=== PATIENT | female | born 1975 | race African-American/Black ===

== ENCOUNTER 2016-09-25 05:16 | Emergency (ER) | payer MEDICAID ==
[~2016-09-25] VITALS: Ht 157.5 cm; Wt 64.9 kg
[2016-09-25 05:58] VITALS: BP 148/98
[2016-09-25] MEDS ORDERED: methylPREDNISolone SOD SUCC 125 MG/2 ML VL IM ONE (07:45)
[2016-09-25] MEDS ORDERED: PENICILLIN G BENZ 1200000 UNITS/2 ML SYRG IM ONE (07:45)
[2016-09-25] MEDS ORDERED: HYDROcodone-ACET 5/325MG TAB PO ONE (08:00)
[2016-09-25] MEDS ORDERED: diphenhdrAMINE HCL 50 MG/1 ML VL IM ONE (08:00)
== END 2016-09-25 08:34 | disposition home or self-care (01) ==
LOC: ER 05:16
DX: R21 Rash and other nonspecific skin eruption (principal); I10 Essential (primary) hypertension; Z88.1 Allergy status to other antibiotic agents
CPT/HCPCS: 96372; 99284; J0561; J1200; J2930

== ENCOUNTER → 2016-09-25 | Emergency (ER) | payer MEDICAID | END | disposition left against medical advice (07) | LOC: ER 02:22 | DX: T78.40XA Allergy, unspecified, initial encounter (principal); Z53.21 Procedure and treatment not carried out due to patient leaving prior to being seen by health care provider ==

== ENCOUNTER 2018-01-22 11:12 | Emergency (ER) | payer MEDICAID ==
[~2018-01-22] VITALS: Ht 160 cm; Wt 108.9 kg
[2018-01-22 11:20] VITALS: BP 134/83
[2018-01-22] MEDS ORDERED: METHOCARBAMOL 500 MG TAB PO ONE (12:15)
[2018-01-22] MEDS ORDERED: KETOROLAC TROMETH 60MG/2ML VIAL IM ONE (12:15)
[2018-01-22 12:45] LABS: Urine Bacteria FEW /hpf (None Seen); Urine Blood Negative /uL (Negative); Urine Mucus FEW (None Seen); Urine Specific Gravity 1.024 (1.001-1.035); Urine WBC 15 /hpf (0 - 5)
== END 2018-01-22 13:14 | disposition home or self-care (01) ==
LOC: ER 11:12
DX: M54.5 Low back pain (principal); G89.29 Other chronic pain; N39.0 Urinary tract infection, site not specified
CPT/HCPCS: 72100; 81001; 81002; 96372; 99285; J1885

== ENCOUNTER 2019-10-11 10:02 | Emergency (ER) | payer MEDICAID ==
[~2019-10-11] VITALS: Ht 160 cm; Wt 104.3 kg
[2019-10-11 10:19] VITALS: BP 153/76
[2019-10-11] MEDS ORDERED: HYDROmorphone HCL 2 MG/ML VL IM ONE (11:00)
[2019-10-11] MEDS ORDERED: PROMETHAZINE HCL 25 MG/ML 1ML IM ONE (11:00)
== END 2019-10-11 11:47 | disposition home or self-care (01) ==
LOC: ER 10:02
DX: M51.16 Intervertebral disc disorders with radiculopathy, lumbar region (principal); F17.210 Nicotine dependence, cigarettes, uncomplicated; I10 Essential (primary) hypertension; Z98.51 Tubal ligation status; Z88.1 Allergy status to other antibiotic agents; Z88.2 Allergy status to sulfonamides
CPT/HCPCS: 96372; 99284; J1170; J2550

== ENCOUNTER 2020-10-11 06:16 | Inpatient (IN) | payer MEDICAID ==
[~2020-10-11] VITALS: Ht 157.5 cm; Wt 117.0 kg
[2020-10-11] MEDS ORDERED: ONDANSETRON HCL 4 MG/2 ML VIAL IV ONE (07:00)
[2020-10-11] MEDS ORDERED: MORPHINE SULF INJ 2 MG/ML SYRINGE 1ML IV ONE (07:15)
[2020-10-11] MEDS ORDERED: SODIUM CHLORIDE 0.9% 500 ML IVB ONE (07:30)
[2020-10-11] MEDS ORDERED: SODIUM CHLORIDE 0.9% 1,000 ML IV ONE (07:30)
[2020-10-11] MEDS ORDERED: DONNATAL 5ml ORAL Elix (BELLADONNA ALK-PHENOBARB) PO ONE (07:30)
[2020-10-11] MEDS ORDERED: ALUM & MAG HYDROX-SIMETH LIQ(MAALOX) 30 ML PO ONE (07:30)
[2020-10-11] MEDS ORDERED: FAMOTIDINE 20 MG TAB PO ONE (07:30)
[2020-10-11 07:45] LABS: Basophils # (auto) 0.1 10 ^3/uL (0-0.2); Basophils % (auto) 0.7 % (0.0-2.0); Eosinophils # (auto) 0.1 10 ^3/uL (0-0.8); Eosinophils % (auto) 0.7 % (0.0-7.0); Hematocrit 39.1 % (36.0-46.0); Hemoglobin 13.2 g/dL (12.2-16.2); Lymphocytes # (auto) 2.7 10 ^3/uL (0.4-5.4); Lymphocytes % (auto) 22.9 % (10.0-50.0); Mean Corpuscular Hgb Conc. 33.8 g/dL (32.0-36.0); Mean Corpuscular Volume 88.9 fL (80.0-100.0); Monocytes # (auto) 0.5 10 ^3/uL (0-1.3); Monocytes % (auto) 4.3 % (0.0-12.0); Neutrophils # (auto) 8.3 10 ^3/uL (1.6-8.6); Neutrophils % (auto) 71.4 % (37.0-80.0); White Blood Cell 11.7 10^3/uL (4.4-10.8)
[2020-10-11 07:54] LABS: Calcium 8.9 mg/dL (8.5-10.1); Magnesium 2.2 mg/dL (1.6-2.6); Potassium 3.5 mmol/L (3.5-5.1)
[2020-10-11 07:55] LABS: Urine Bacteria NONE SEEN /hpf (None Seen); Urine Blood Negative /uL (Negative); Urine Mucus FEW (None Seen); Urine Specific Gravity 1.016 (1.001-1.035); Urine WBC <1 /hpf (0 - 5)
[2020-10-11 08:00] LABS: BUN/Creatinine Ratio 10.4; Bilirubin, Total 0.2 mg/dL (0.2-1.0); Total Protein 8.3 g/dL (6.4-8.2)
[2020-10-11 09:12] LABS: Alcohol, Urine < 3.0 mg/dL (0-10); Amphetamine Screen, Urine NEGATIVE (NEGATIVE); Barbiturate Scree,Urine NEGATIVE (NEGATIVE); Benzodiazephine Screen, Urine POSITIVE (NEGATIVE); Cannabinoid Screen, Urine NEGATIVE (NEGATIVE); Cocaine Screen, Urine NEGATIVE (NEGATIVE); Opiate Scree,Urine NEGATIVE (NEGATIVE); Phencyclidine Screen, Urine NEGATIVE (NEGATIVE)
[2020-10-11] MEDS ORDERED: KETOROLAC TROMETH 30 MG/ML 1ML VIAL IV ONE ×2 (09:15)
[2020-10-11] MEDS ORDERED: METOCLOPRAMIDE HCL 5MG/ml INJ 2ml VIAL IV ONE ×2 (09:15)
[2020-10-11] MEDS ORDERED: cefTRIAXone 1GM/50ML D5W 50 ML IV ONE (12:15)
[2020-10-11] MEDS ORDERED: MORPHINE SULF INJ 2 MG/ML SYRINGE 1ML IV PRN (14:45)
[2020-10-11] MEDS ORDERED: NITROGLYCERIN 0.4 MG SL TAB SL PRN (14:45)
[2020-10-11] MEDS: D5W/SOD CHLO 0.9% 1,000 ML IV SCH ×2 (14:45→21:52)
[2020-10-11] MEDS ORDERED: hydrALAZINE HCL 20 MG/ML VL IV PRN (14:45)
[2020-10-11] MEDS ORDERED: ACETAMINOPHEN 325 MG TAB PO PRN (14:45)
[2020-10-11] MEDS: ONDANSETRON HCL 4 MG/2 ML VIAL IV PRN ×2 (15:17→21:49)
[2020-10-11] MEDS: KETOROLAC TROMETH 30 MG/ML 1ML VIAL IV PRN ×2 (15:17→21:48)
[2020-10-11] MEDS: PIPERACILLIN-TAZOB 3.375GM 100 ML IV SCH (21:52)
[2020-10-11] MEDS: ALPRAZolam 0.5 MG TAB PO SCH (21:52)
[2020-10-11 21:59] VITALS: BP 117/63
[2020-10-11 22:05] VITALS: BP 117/63
[2020-10-11] MEDS ORDERED: HYDR-4798 PO (23:09)
[2020-10-11] MEDS ORDERED: AMLO-489 PO (23:09)
[2020-10-11] MEDS ORDERED: MORP15TA PO (23:09)
[2020-10-11] MEDS ORDERED: METO-289 PO (23:09)
[2020-10-11] MEDS ORDERED: IBUP800T27 PO (23:09)
[2020-10-11] MEDS ORDERED: ALPR0.5T PO (23:09)
[2020-10-11] MEDS ORDERED: ONDA-155 PO (23:09)
[2020-10-11] MEDS ORDERED: CYCL10TA6 PO (23:09)
[2020-10-11] MEDS ORDERED: OMEP20TA PO (23:09)
[2020-10-12] MEDS: KETOROLAC TROMETH 30 MG/ML 1ML VIAL IV PRN ×3 (03:51→10:35)
[2020-10-12 05:13] VITALS: BP 102/54
[2020-10-12] MEDS: PIPERACILLIN-TAZOB 3.375GM 100 ML IV SCH ×2 (05:15→15:05)
[2020-10-12] MEDS: D5W/SOD CHLO 0.9% 1,000 ML IV SCH ×2 (06:45→15:06)
[2020-10-12 07:00] LABS: Basophils # (auto) 0.1 10 ^3/uL (0-0.2); Basophils % (auto) 0.7 % (0.0-2.0); Eosinophils # (auto) 0.1 10 ^3/uL (0-0.8); Eosinophils % (auto) 0.8 % (0.0-7.0); Hematocrit 35.7 % (36.0-46.0); Hemoglobin 12.2 g/dL (12.2-16.2); Lymphocytes # (auto) 2.1 10 ^3/uL (0.4-5.4); Lymphocytes % (auto) 19.3 % (10.0-50.0); Mean Corpuscular Volume 88.3 fL (80.0-100.0); Monocytes # (auto) 0.8 10 ^3/uL (0-1.3); Neutrophils % (auto) 72.2 % (37.0-80.0); Red Blood Cells 4.05 10^6/uL (4.0-5.20); Red Cell Distribution Width 14.1 % (11.8-14.3); White Blood Cell 11.1 10^3/uL (4.4-10.8)
[2020-10-12 07:15] LABS: Albumin 3.2 g/dL (3.4-5.0); Calcium 7.9 mg/dL (8.5-10.1); Potassium 3.2 mmol/L (3.5-5.1)
[2020-10-12 07:19] LABS: BUN/Creatinine Ratio 8.3; Bilirubin, Total 0.5 mg/dL (0.2-1.0)
[2020-10-12 09:00] VITALS: BP 101/60
[2020-10-12] MEDS: PANTOPRAZOLE 40 MG/10 ML VIAL INJ IV SCH (09:40)
[2020-10-12] MEDS: ONDANSETRON HCL 4 MG/2 ML VIAL IV PRN (10:36)
[2020-10-12] MEDS: HYDROcodone-ACET 10/325MG TAB PO PRN ×3 (11:06→19:50)
[2020-10-12 11:26] LABS: INR 1.1 (0.9-1.15); Partial Thromboplastin Time 30.5 sec (23.0-31.2)
[2020-10-12 13:00] VITALS: BP 131/74
[2020-10-12] MEDS: D5W/SOD CHL 0.45%/KCL 40MEQ 1,000 ML IV SCH (17:32)
[2020-10-12 22:09] VITALS: BP 102/52
[2020-10-12] MEDS: ALPRAZolam 0.5 MG TAB PO SCH (22:38)
[2020-10-13] MEDS: HYDROcodone-ACET 10/325MG TAB PO PRN ×3 (00:04→20:47)
[2020-10-13] MEDS: ONDANSETRON HCL 4 MG/2 ML VIAL IV PRN ×3 (00:34→23:22)
[2020-10-13] MEDS: PIPERACILLIN-TAZOB 3.375GM 100 ML IV SCH ×3 (01:49→17:57)
[2020-10-13] MEDS: D5W/SOD CHL 0.45%/KCL 40MEQ 1,000 ML IV SCH ×3 (03:15→23:15)
[2020-10-13 04:52] VITALS: BP 93/51
[2020-10-13 07:00] LABS: Basophils # (auto) 0.1 10 ^3/uL (0-0.2); Eosinophils # (auto) 0.1 10 ^3/uL (0-0.8); Eosinophils % (auto) 1.1 % (0.0-7.0); Hematocrit 34.4 % (36.0-46.0); Hemoglobin 11.7 g/dL (12.2-16.2); Lymphocytes # (auto) 2.2 10 ^3/uL (0.4-5.4); Lymphocytes % (auto) 22.7 % (10.0-50.0); Mean Corpuscular Hemoglobin 30.3 pg (28.0-32.0); Monocytes # (auto) 0.7 10 ^3/uL (0-1.3); Monocytes % (auto) 6.8 % (0.0-12.0); Neutrophils # (auto) 6.6 10 ^3/uL (1.6-8.6); Neutrophils % (auto) 68.4 % (37.0-80.0); Nucleated Red Blood Cells % 0.1 %; Red Blood Cells 3.86 10^6/uL (4.0-5.20); Red Cell Distribution Width 14.3 % (11.8-14.3); White Blood Cell 9.7 10^3/uL (4.4-10.8)
[2020-10-13 07:15] LABS: Albumin 3.1 g/dL (3.4-5.0); Calcium 7.9 mg/dL (8.5-10.1); Potassium 3.2 mmol/L (3.5-5.1)
[2020-10-13 07:19] LABS: BUN/Creatinine Ratio 4.8; Bilirubin, Total 0.7 mg/dL (0.2-1.0); Total Protein 6.9 g/dL (6.4-8.2)
[2020-10-13 07:30] LABS: INR 1.12 (0.9-1.15)
[2020-10-13 09:00] VITALS: BP 117/72
[2020-10-13] MEDS ORDERED: ceFAZolin 1GM/50ML 100 ML IV ONE (09:33)
[2020-10-13] MEDS ORDERED: BUPIVACAINE W/ EPINEPH 0.25% INJ 50ML MDV ONE (09:42)
[2020-10-13] MEDS ORDERED: LIDOCAINE 1% HCL (LOCAL ANESTH.) INJ 20ML MDV ONE (09:42)
[2020-10-13] MEDS ORDERED: fentaNYL CITRATE 100 MCG/2 ML VL ONE (10:01)
[2020-10-13] MEDS ORDERED: MIDAZOLAM HCL 1MG/1ML-2 ML VIAL ONE (10:01)
[2020-10-13] MEDS ORDERED: ROCURONIUM 10MG/ML 10ML VIAL IV ONE (10:01)
[2020-10-13] MEDS ORDERED: ONDANSETRON HCL 4 MG/2 ML VIAL ONE ×2 (10:58→11:46)
[2020-10-13] MEDS ORDERED: LIDOCAINE 2% (LOCAL ANESTH.) PF 5ml SDV ONE (10:58)
[2020-10-13] MEDS ORDERED: PROPOFOL 10 MG/ML 20 ML IV ONE (10:58)
[2020-10-13] MEDS ORDERED: GLYCOPYRROLATE 0.2 MG/ML 1ML VIAL ONE (11:31)
[2020-10-13] MEDS ORDERED: NEOSTIGMINE 1 MG/ML INJ (10mg/10ML VIAL) ONE (11:31)
[2020-10-13] MEDS ORDERED: HYDROmorphone HCL 2 MG/ML VL IV PRN ×2 (11:45→13:00)
[2020-10-13] MEDS: HYDROmorphone HCL 2 MG/ML VL IV PRN ×4 (11:45→22:34)
[2020-10-13] MEDS ORDERED: ONDANSETRON HCL 4 MG/2 ML VIAL IV PRN (11:45)
[2020-10-13] MEDS ORDERED: HYDROmorphone HCL 2 MG/ML VL ONE (11:46)
[2020-10-13] MEDS: PANTOPRAZOLE 40 MG/10 ML VIAL INJ IV SCH (13:10)
[2020-10-13 17:27] VITALS: BP 131/69
[2020-10-13] MEDS: ALPRAZolam 0.5 MG TAB PO SCH (20:47)
[2020-10-13 22:00] VITALS: BP 143/78
[2020-10-14] MEDS: HYDROcodone-ACET 10/325MG TAB PO PRN ×4 (02:24→22:55)
[2020-10-14] MEDS: PIPERACILLIN-TAZOB 3.375GM 100 ML IV SCH ×3 (02:57→18:20)
[2020-10-14 05:00] VITALS: BP 124/81
[2020-10-14 07:40] LABS: Basophils # (auto) 0.1 10 ^3/uL (0-0.2); Basophils % (auto) 0.6 % (0.0-2.0); Eosinophils # (auto) 0.1 10 ^3/uL (0-0.8); Eosinophils % (auto) 1.1 % (0.0-7.0); Hematocrit 34.8 % (36.0-46.0); Hemoglobin 11.6 g/dL (12.2-16.2); Lymphocytes % (auto) 22.4 % (10.0-50.0); Mean Corpuscular Hemoglobin 29.8 pg (28.0-32.0); Mean Corpuscular Hgb Conc. 33.2 g/dL (32.0-36.0); Mean Corpuscular Volume 89.7 fL (80.0-100.0); Monocytes # (auto) 0.6 10 ^3/uL (0-1.3); Neutrophils # (auto) 6.2 10 ^3/uL (1.6-8.6); Neutrophils % (auto) 68.9 % (37.0-80.0); Red Blood Cells 3.89 10^6/uL (4.0-5.20); Red Cell Distribution Width 14.1 % (11.8-14.3); White Blood Cell 8.9 10^3/uL (4.4-10.8)
[2020-10-14 07:53] LABS: BUN/Creatinine Ratio 5.8; Calcium 8.1 mg/dL (8.5-10.1); Potassium 3.2 mmol/L (3.5-5.1)
[2020-10-14 07:55] LABS: Bilirubin, Total 0.5 mg/dL (0.2-1.0); Total Protein 7.2 g/dL (6.4-8.2)
[2020-10-14 08:30] VITALS: BP 124/74
[2020-10-14] MEDS: ONDANSETRON HCL 4 MG/2 ML VIAL IV PRN ×4 (08:40→22:55)
[2020-10-14] MEDS: D5W/SOD CHL 0.45%/KCL 40MEQ 1,000 ML IV SCH ×2 (09:15→19:15)
[2020-10-14] MEDS: HYDROmorphone HCL 2 MG/ML VL IV PRN (10:35)
[2020-10-14] MEDS: PANTOPRAZOLE 40 MG/10 ML VIAL INJ IV SCH (10:35)
[2020-10-14] MEDS ORDERED: POTASSIUM CHL 20 Meq TABLET PO ONE (12:30)
[2020-10-14 12:50] VITALS: BP 115/71
[2020-10-14] MEDS ORDERED: LEVO500T31 PO (12:50)
[2020-10-14] MEDS ORDERED: POTA-180 PO (12:50)
[2020-10-14] MEDS ORDERED: METR500T PO (12:50)
[2020-10-14] MEDS: POLYETHYLENE GLYCOL 17 GM PWDR PO PRN (13:35)
[2020-10-14 16:22] VITALS: BP 115/71
[2020-10-14 16:50] VITALS: BP 136/78
[2020-10-14 21:49] VITALS: BP 111/70
[2020-10-14] MEDS: ALPRAZolam 0.5 MG TAB PO SCH (22:15)
[2020-10-15] MEDS: PIPERACILLIN-TAZOB 3.375GM 100 ML IV SCH ×2 (01:55→10:04)
[2020-10-15] MEDS: HYDROcodone-ACET 10/325MG TAB PO PRN ×2 (03:56→13:32)
[2020-10-15] MEDS: ONDANSETRON HCL 4 MG/2 ML VIAL IV PRN (03:58)
[2020-10-15] MEDS: D5W/SOD CHL 0.45%/KCL 40MEQ 1,000 ML IV SCH (05:04)
[2020-10-15 05:09] VITALS: BP 105/79
[2020-10-15 09:03] VITALS: BP 121/74
[2020-10-15] MEDS: PANTOPRAZOLE 40 MG/10 ML VIAL INJ IV SCH (10:04)
[2020-10-15] MEDS: POLYETHYLENE GLYCOL 17 GM PWDR PO PRN (10:09)
[2020-10-15 12:00] VITALS: BP 120/82
[2020-10-15] MEDS ORDERED: ONDA-144 PO (15:26)
== END 2020-10-15 17:35 | disposition home or self-care (01) | DRG 263 ==
LOC: ER 06:16 → EDBD 06:16 → OVERFLOW 14:44 → CENTRAL 20:10
PROVIDERS: ADMIT Hospitalist; ATTEND Hospitalist
PROC: 0FT44ZZ Resection of Gallbladder, Percutaneous Endoscopic Approach (ICD-10-PCS; principal; 2020-10-13 10:05)
DX: K80.00 Calculus of gallbladder with acute cholecystitis without obstruction (principal); E66.01 Morbid (severe) obesity due to excess calories; D72.829 Elevated white blood cell count, unspecified; Z20.822 Contact with and (suspected) exposure to COVID-19; I10 Essential (primary) hypertension; F12.90 Cannabis use, unspecified, uncomplicated; F41.9 Anxiety disorder, unspecified; E87.6 Hypokalemia; K82.8 Other specified diseases of gallbladder; G89.4 Chronic pain syndrome; M79.7 Fibromyalgia; Z88.2 Allergy status to sulfonamides; Z68.41 Body mass index [BMI] 40.0-44.9, adult; Z98.51 Tubal ligation status; Z82.49 Family history of ischemic heart disease and other diseases of the circulatory system; Z88.1 Allergy status to other antibiotic agents; Z79.899 Other long term (current) drug therapy
CPT/HCPCS: 36415; 71045; 71046; 74176; 76705; 80053; 80307; 81001; 81025; 83690; 83735; 84132; 84443; 85025; 85049; 85610; 85730; 86850; 86900; 86901; 87081; 87426; 93005; 96361; 96365; 96375; C9113; G0378; J0690; J0696; J1885; J2001; J2250; J2405; J2543; J2704; J7042

== ENCOUNTER 2020-12-25 15:05 | Emergency (ER) | payer MEDICAID ==
[~2020-12-25] VITALS: Ht 160 cm; Wt 104.3 kg
[~2020-12-25 15:05] MED LIST: ALPR0.5T PO; AMLO-489 PO; CYCL10TA6 PO; HYDR-4798 PO; IBUP800T27 PO; LEVO500T31 PO; METO-289 PO; METR500T PO; MORP15TA PO; OMEP20TA PO; ONDA-144 PO; ONDA-155 PO; POTA-180 PO
[2020-12-25] MEDS ORDERED: SODIUM CHLORIDE 0.9% 1,000 ML IV ONE (16:00)
[2020-12-25 16:08] LABS: Urine Bacteria NONE SEEN /hpf (None Seen); Urine Blood TRACE /uL (Negative); Urine Mucus FEW (None Seen); Urine Specific Gravity 1.018 (1.001-1.035); Urine WBC <1 /hpf (0 - 5)
[2020-12-25 16:24] LABS: Basophils # (auto) 0 10 ^3/uL (0-0.2); Basophils % (auto) 0.7 % (0.0-2.0); Eosinophils # (auto) 0.1 10 ^3/uL (0-0.8); Eosinophils % (auto) 2.1 % (0.0-7.0); Hematocrit 38.2 % (36.0-46.0); Hemoglobin 12.7 g/dL (12.2-16.2); Lymphocytes # (auto) 2.1 10 ^3/uL (0.4-5.4); Lymphocytes % (auto) 33.4 % (10.0-50.0); Mean Corpuscular Hemoglobin 28.9 pg (28.0-32.0); Mean Corpuscular Hgb Conc. 33.1 g/dL (32.0-36.0); Mean Corpuscular Volume 87.2 fL (80.0-100.0); Monocytes # (auto) 0.5 10 ^3/uL (0-1.3); Monocytes % (auto) 7.3 % (0.0-12.0); Neutrophils # (auto) 3.5 10 ^3/uL (1.6-8.6); Neutrophils % (auto) 56.5 % (37.0-80.0); Nucleated Red Blood Cells % 0.2 %; Red Blood Cells 4.38 10^6/uL (4.0-5.20); Red Cell Distribution Width 14.9 % (11.8-14.3); White Blood Cell 6.2 10^3/uL (4.4-10.8)
[2020-12-25 20:25] VITALS: BP 128/84
== END 2020-12-25 22:00 | disposition home or self-care (01) ==
LOC: ER 15:07
DX: K52.9 Noninfective gastroenteritis and colitis, unspecified (principal); I10 Essential (primary) hypertension; Z98.51 Tubal ligation status; Z88.2 Allergy status to sulfonamides; Z88.1 Allergy status to other antibiotic agents
CPT/HCPCS: 36415; 71045; 74176; 81001; 84484; 85025; 93005; 96360; 96361; 99285; J7030

== ENCOUNTER 2022-08-16 19:51 | Emergency (ER) | payer MEDICARE, MEDICAID ==
[~2022-08-16] VITALS: Ht 160 cm; Wt 104.5 kg
[~2022-08-16 19:51] MED LIST changes: +CYCL-839 PO; -CYCL10TA6 PO
[2022-08-16] MEDS ORDERED: CLINDAMYCIN 900MG IV 50 ML IV ONE (23:30)
[2022-08-16] MEDS ORDERED: cefTRIAXone 1GM/50ML D5W 50 ML IV ONE (23:30)
[2022-08-16] MEDS ORDERED: CLIN300C8 PO (23:32)
[2022-08-16] MEDS ORDERED: CEPH-510 PO (23:32)
[2022-08-16] MEDS ORDERED: HYDROcodone-ACET 5/325MG TAB PO ONE (23:45)
[2022-08-17] MEDS ORDERED: ONDANSETRON ODT 4 MG TAB PO ONE (00:30)
[2022-08-17 05:36] VITALS: BP 157/82
== END 2022-08-17 01:33 | disposition home or self-care (01) ==
LOC: ER 19:51 → EDBD 19:51 → ER 08-17 01:33
DX: S10.86XA Insect bite of other specified part of neck, initial encounter (principal); F41.9 Anxiety disorder, unspecified; I10 Essential (primary) hypertension; Z98.890 Other specified postprocedural states; W57.XXXA Bitten or stung by nonvenomous insect and other nonvenomous arthropods, initial encounter; Y93.89 Activity, other specified; Y92.89 Other specified places as the place of occurrence of the external cause; Y99.8 Other external cause status; Z79.899 Other long term (current) drug therapy
CPT/HCPCS: 96365; 96366; 96368; 99284; J0696; J3490; Q0162

== ENCOUNTER 2025-01-24 15:12 | Emergency (ER) | payer MEDICARE, MEDICAID ==
[~2025-01-24] VITALS: Ht 157.5 cm; Wt 97.8 kg
[~2025-01-24 15:12] MED LIST changes: -AMLO-489 PO; +AMLO1TAB22 PO; +CEPH-510 PO; +CLIN1CAP70 PO; +IBUP-1456 PO; -IBUP800T27 PO
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
[2025-01-24] MEDS ORDERED: ACET500T58 PO (17:15)
[2025-01-24] MEDS ORDERED: IBUP-1455 PO (17:15)
[2025-01-24] MEDS: HYDROcodone-ACET 5/325MG TAB PO ONE (17:25)
[2025-01-24] MEDS: KETOROLAC TROMETH 60MG/2ML VIAL IM ONE (17:31)
[2025-01-24 17:32] VITALS: PULSE 67; RESP 18; O2SAT 100
[2025-01-24 18:35] VITALS: BP 136/71; PULSE 61; RESP 17; TEMP 98.3; O2SAT 98
== END 2025-01-24 18:42 | disposition home or self-care (01) ==
LOC: ER 15:12
DX: S39.012A Strain of muscle, fascia and tendon of lower back, initial encounter (principal); I10 Essential (primary) hypertension; F41.9 Anxiety disorder, unspecified; E66.01 Morbid (severe) obesity due to excess calories; Z79.891 Long term (current) use of opiate analgesic; Z79.899 Other long term (current) drug therapy; Z88.1 Allergy status to other antibiotic agents; Z88.2 Allergy status to sulfonamides; Z98.1 Arthrodesis status; Z98.51 Tubal ligation status; Z68.39 Body mass index [BMI] 39.0-39.9, adult; V43.52XA Car driver injured in collision with other type car in traffic accident, initial encounter; Y93.89 Activity, other specified; Y92.488 Other paved roadways as the place of occurrence of the external cause; Y99.8 Other external cause status
CPT/HCPCS: 72100; 96372; 99283; J1885